=== PATIENT | female | born 1960 | race Caucasian/White ===

== ENCOUNTER 2023-09-16 17:43 | Inpatient (IN) | payer OTHER ==
[~2023-09-16] VITALS: Ht 162.6 cm; Wt 72.8 kg
[2023-09-16 17:45] VITALS: BP 172/92; PULSE 148; RESP 33; O2SAT 95
[2023-09-16] MEDS ORDERED: IPRATROPIUM 0.02% 0.5 MG/2.5 ML NEBU INH ONE (17:50)
[2023-09-16] MEDS ORDERED: NACL 0.9% 1,000 ML IV ONE ×2 (17:50→18:40)
[2023-09-16] MEDS ORDERED: ALBUTEROL 0.083% 2.5 MG/3 ML NEBU INH ONE (17:50)
[2023-09-16] MEDS ORDERED: methylPREDNISolone SS 125 MG/2 ML VIAL IVP ONE (17:50)
[2023-09-16] MEDS ORDERED: MAG SULF 2000 MG/WATER PREMIX 50 ML IV ONE (17:50)
[2023-09-16 17:58] VITALS: PULSE 148; RESP 33; O2SAT 95
[2023-09-16 17:59] VITALS: BP 164/143; PULSE 154; RESP 24; TEMP 96.3; O2SAT 98
[2023-09-16 18:28] LABS: BASOPHILS % (AUTO) 0.2 % (0.0-2.0); EOSINOPHILS # (AUTO) 0.1 K/uL (0-0.4); EOSINOPHILS % (AUTO) 0.8 % (0.0-4.0); HEMATOCRIT 36.6 % (36-48); HEMOGLOBIN 11.9 g/dL (12.0-16.0); LYMPHOCYTES # (AUTO) 1.4 K/uL (2.5-16.5); LYMPHOCYTES % (AUTO) 9.6 % (20.5-51.1); MEAN CORPUSCULAR HEMOGLOBIN 32 pg (27-31); MEAN CORPUSCULAR HGB CONC 33 g/dL (33-37); MONOCYTES # (AUTO) 1.1 K/uL (0.8-1.0); MONOCYTES % (AUTO) 7.6 % (1.7-9.3); NEUTROPHILS # (AUTO) 11.8 K/uL (1.8-7.7); NEUTROPHILS % (AUTO) 81.8 % (42.2-75.2); PLATELET COUNT (AUTO) 180 K/uL (140-450); RED CELL DISTRIBUTION WIDTH 13.5 % (11.6-13.7); WHITE BLOOD COUNT (AUTO) 14.4 K/uL (4.8-10.8)
[2023-09-16] MEDS ORDERED: PIPERACILLIN/TAZOBACTAM 3.375 GM in DEXTROSE 5% 50 ML IV ONE (18:40)
[2023-09-16 18:49] LABS: ALBUMIN 3.1 g/dL (3.4-5.0); ANION GAP 11.2 (8-16); CALCIUM 7.9 mg/dL (8.5-10.1); CARBON DIOXIDE 31.6 mmol/L (21-32); CREATININE 0.8 mg/dL (0.6-1.3); POTASSIUM 3.8 mmol/L (3.5-5.1); TOTAL BILIRUBIN 0.6 mg/dL (0.0-1.0); TOTAL PROTEIN, SERUM 6.3 g/dL (6.4-8.2)
[2023-09-16 18:57] VITALS: BP 152/76; PULSE 141; O2SAT 99
[2023-09-16 19:18] LABS: LACTIC ACID 2.8 mmol/L (0.4-2.0)
[2023-09-16] MEDS ORDERED: PIPERACILLIN/TAZOBACTAM 3.375 GM VIAL IV ONE (19:32)
[2023-09-16] MEDS ORDERED: MORPHINE SULFATE 4 MG/ML SYR IVP ONE (19:45)
[2023-09-16] MEDS ORDERED: ONDANSETRON 4 MG/2 ML VIAL IVP ONE (19:45)
[2023-09-16 21:10] VITALS: PULSE 119; O2SAT 94
[2023-09-16 22:02] LABS: BLOOD GAS BASE EXCESS -1.9 mmol/L (-2.0-2.0); BLOOD GAS HCO3 24.7 mmol/L (22-26); BLOOD GAS PCO2 49.2 mmHg (35-45); BLOOD GAS PH 7.318 (7.35-7.45); BLOOD GAS PO2 61.8 mmHg (75-100)
[2023-09-16] MEDS ORDERED: POTASSIUM CHLORIDE 10 MEQ TABER PO PRN (22:55)
[2023-09-16] MEDS ORDERED: guaiFENesin DM 200/20 MG-10 ML 10 ML UDC PO PRN (22:55)
[2023-09-16] MEDS ORDERED: ONDANSETRON 4 MG/2 ML VIAL IM/IVP PRN (22:55)
[2023-09-16] MEDS ORDERED: ZOLPIDEM 5 MG TAB PO PRN (22:55)
[2023-09-16] MEDS ORDERED: DOCUSATE SODIUM 100 MG GELCAP PO PRN (22:55)
[2023-09-16] MEDS ORDERED: HYDROcodone/APAP 7.5/325 MG 1 TAB PO PRN (22:55)
[2023-09-16] MEDS ORDERED: ACETAMINOPHEN 325 MG TAB PO PRN (22:55)
[2023-09-16 23:47] LABS: FLU A ANTIGEN negative (NEGATIVE); FLU B ANTIGEN NEGATIVE (NEGATIVE)
[2023-09-16 23:52] LABS: APPEARANCE,URINE CLEAR (CLEAR); BILIRUBIN,URINE NEGATIVE (NEGATIVE); BLOOD, URINE NEGATIVE (NEGATIVE); COLOR,URINE YELLOW (YELLOW); LEUKOCYTE ESTERASE ,URINE NEGATIVE (NEGATIVE); NITRITE, URINE NEGATIVE (NEGATIVE); PH,URINE 5.5 (5.0-9.0); PROTEIN,URINE TRACE (NEGATIVE); UGLUCOSE NEGATIVE (NEGATIVE); UROBILINOGEN,URINE 0.2 EU/dL (0.2 - 1)
[2023-09-16 23:59] VITALS: PULSE 91; O2SAT 97
[2023-09-17] VITALS (27 sets, daily range): BP systolic 104–147; BP diastolic 57–85; PULSE 70–111; RESP 13–24; TEMP 96–97.3; O2SAT 84–99
[2023-09-17] MEDS ORDERED: PIPERACILLIN/TAZOBACTAM 3.375 GM VIAL IV ONE (04:00)
[2023-09-17] MEDS: PIPERACILLIN/TAZOBACTAM 3.375 GM in DEXTROSE 5% 50 ML IV SCH ×3 (05:07→20:44)
[2023-09-17 05:32] LABS: HEMATOCRIT 36.2 % (36-48); HEMOGLOBIN 11.7 g/dL (12.0-16.0); LYMPHOCYTES # (AUTO) 0.2 K/uL (2.5-16.5); LYMPHOCYTES % (AUTO) 1.2 % (20.5-51.1); MEAN CORPUSCULAR HEMOGLOBIN 32 pg (27-31); MEAN CORPUSCULAR HGB CONC 33 g/dL (33-37); MEAN CORPUSCULAR VOLUME 99.1 fL (80-94); MONOCYTES # (AUTO) 0.1 K/uL (0.8-1.0); MONOCYTES % (AUTO) 0.4 % (1.7-9.3); NEUTROPHILS # (AUTO) 13.8 K/uL (1.8-7.7); NEUTROPHILS % (AUTO) 98.4 % (42.2-75.2); PLATELET COUNT (AUTO) 169 K/uL (140-450); RED BLOOD CELL COUNT(AUTO) 3.65 MIL/uL (4.20-5.40); RED CELL DISTRIBUTION WIDTH 13.4 % (11.6-13.7)
[2023-09-17 06:03] LABS: ANION GAP 8.5 (8-16); CALCIUM 8.1 mg/dL (8.5-10.1); CARBON DIOXIDE 33.8 mmol/L (21-32); CREATININE 0.6 mg/dL (0.6-1.3); POTASSIUM 4.3 mmol/L (3.5-5.1); TOTAL BILIRUBIN 0.3 mg/dL (0.0-1.0); TOTAL PROTEIN, SERUM 6.7 g/dL (6.4-8.2)
[2023-09-17] MEDS ORDERED: MAG SULF 2000 MG/WATER PREMIX 50 ML IV PRN (06:35)
[2023-09-17] MEDS ORDERED: POTASSIUM CHLORIDE 10 MEQ TABER PO PRN (06:35)
[2023-09-17] MEDS ORDERED: DOCUSATE SODIUM 100 MG GELCAP PO PRN (06:35)
[2023-09-17] MEDS ORDERED: ACETAMINOPHEN 325 MG TAB PO PRN (06:35)
[2023-09-17] MEDS ORDERED: ONDANSETRON 4 MG/2 ML VIAL IVP PRN (06:35)
[2023-09-17] MEDS ORDERED: ALBUTEROL SULFATE/IPRATROPIU 3 ML SOL IH SCH (07:00)
[2023-09-17] MEDS ORDERED: PANTOPRAZOLE 40 MG INJ VIAL ONE (08:08)
[2023-09-17] MEDS: PANTOPRAZOLE 40 MG INJ VIAL IVP SCH (08:14)
[2023-09-17] MEDS: NACL 0.9% 1,000 ML IV SCH ×2 (08:19→20:53)
[2023-09-17] MEDS ORDERED: PANTOPRAZOLE 40 MG TABEC PO SCH (09:00)
[2023-09-17] MEDS: methylPREDNISolone SS 40 MG/ML VIAL IVP SCH ×3 (11:11→23:26)
[2023-09-17] MEDS: MORPHINE SULFATE 2 MG/ML SYR IVP PRN (11:26)
[2023-09-17] MEDS ORDERED: SPIMDI INH (12:00)
[2023-09-17] MEDS ORDERED: LEVO0.1331 PO (12:00)
[2023-09-17] MEDS ORDERED: ATRN INH (12:00)
[2023-09-17] MEDS ORDERED: FLUT1BLS12 IH (12:00)
[2023-09-17] MEDS ORDERED: PRON INH (12:00)
[2023-09-17] MEDS: ALBUTEROL SULFATE/IPRATROPIU 3 ML SOL IH SCH ×3 (13:34→19:06)
[2023-09-17] MEDS: LORazepam 2 MG/ML VIAL IVP PRN (14:22)
[2023-09-17] MEDS: ZOLPIDEM 5 MG TAB PO PRN (23:25)
[2023-09-17] MEDS: ALBUTEROL SULFATE/IPRATROPIU 3 ML SOL IH PRN (23:42)
[2023-09-18] VITALS (18 sets, daily range): BP systolic 136–161; BP diastolic 66–93; PULSE 73–116; RESP 17–26; TEMP 96.8–97.9; O2SAT 90–99
[2023-09-18] MEDS: MORPHINE SULFATE 2 MG/ML SYR IVP PRN ×3 (00:13→17:33)
[2023-09-18] MEDS: PIPERACILLIN/TAZOBACTAM 3.375 GM in DEXTROSE 5% 50 ML IV SCH ×3 (04:27→20:45)
[2023-09-18] MEDS: ALBUTEROL SULFATE/IPRATROPIU 3 ML SOL IH PRN ×2 (04:46→09:04)
[2023-09-18] MEDS: methylPREDNISolone SS 40 MG/ML VIAL IVP SCH ×4 (05:19→23:43)
[2023-09-18 05:21] LABS: BASOPHILS % (AUTO) 0.2 % (0.0-2.0); HEMOGLOBIN 11.1 g/dL (12.0-16.0); LYMPHOCYTES # (AUTO) 0.3 K/uL (2.5-16.5); LYMPHOCYTES % (AUTO) 2.3 % (20.5-51.1); MEAN CORPUSCULAR HEMOGLOBIN 32 pg (27-31); MEAN CORPUSCULAR HGB CONC 33 g/dL (33-37); MEAN CORPUSCULAR VOLUME 98.3 fL (80-94); MONOCYTES # (AUTO) 0.2 K/uL (0.8-1.0); MONOCYTES % (AUTO) 1.9 % (1.7-9.3); NEUTROPHILS # (AUTO) 11.7 K/uL (1.8-7.7); NEUTROPHILS % (AUTO) 95.6 % (42.2-75.2); PLATELET COUNT (AUTO) 180 K/uL (140-450); RED BLOOD CELL COUNT(AUTO) 3.46 MIL/uL (4.20-5.40); RED CELL DISTRIBUTION WIDTH 13.4 % (11.6-13.7); WHITE BLOOD COUNT (AUTO) 12.2 K/uL (4.8-10.8)
[2023-09-18 05:41] LABS: ALBUMIN 2.8 g/dL (3.4-5.0); ANION GAP 10.2 (8-16); CARBON DIOXIDE 33.1 mmol/L (21-32); CREATININE 0.5 mg/dL (0.6-1.3); POTASSIUM 4.3 mmol/L (3.5-5.1); TOTAL BILIRUBIN 0.2 mg/dL (0.0-1.0); TOTAL PROTEIN, SERUM 6.2 g/dL (6.4-8.2)
[2023-09-18] MEDS: NACL 0.9% 1,000 ML IV SCH ×2 (06:12→23:50)
[2023-09-18] MEDS: ALBUTEROL SULFATE/IPRATROPIU 3 ML SOL IH SCH ×4 (07:09→19:48)
[2023-09-18] MEDS: PANTOPRAZOLE 40 MG INJ VIAL IVP SCH (08:41)
[2023-09-18] MEDS ORDERED: COMMUNICATION ORDER MC PRN (08:55)
[2023-09-18] MEDS: LEVOTHYROXINE 0.025 MG, LEVOTHYROXINE 0.112 MG PO SCH ×2 (09:19)
[2023-09-18] MEDS ORDERED: guaiFENesin DM 200/20 MG-10 ML 10 ML UDC PO PRN (10:10)
[2023-09-18] MEDS ORDERED: METOPROLOL 25 MG TAB PO SCH (17:54)
[2023-09-18] MEDS ORDERED: MAGNESIUM OXIDE 400 MG TAB PO ONE (18:20)
[2023-09-18] MEDS: LORazepam 2 MG/ML VIAL IVP PRN (19:27)
[2023-09-19] VITALS (12 sets, daily range): BP systolic 155–178; BP diastolic 70–88; PULSE 53–101; RESP 17–24; TEMP 97.1–98; O2SAT 95–99
[2023-09-19] MEDS: ZOLPIDEM 5 MG TAB PO PRN ×2 (01:10→22:02)
[2023-09-19] MEDS: ALBUTEROL SULFATE/IPRATROPIU 3 ML SOL IH PRN (01:54)
[2023-09-19] MEDS: MORPHINE SULFATE 2 MG/ML SYR IVP PRN ×4 (03:27→21:45)
[2023-09-19] MEDS: PIPERACILLIN/TAZOBACTAM 3.375 GM in DEXTROSE 5% 50 ML IV SCH ×3 (05:20→21:12)
[2023-09-19] MEDS ORDERED: LEVOTHYROXINE 0.112 MG TAB ONE (06:08)
[2023-09-19] MEDS ORDERED: LEVOTHYROXINE 0.025 MG TAB ONE (06:08)
[2023-09-19] MEDS: methylPREDNISolone SS 40 MG/ML VIAL IVP SCH ×3 (06:11→18:13)
[2023-09-19] MEDS: LEVOTHYROXINE 0.025 MG, LEVOTHYROXINE 0.112 MG PO SCH ×2 (06:11)
[2023-09-19 06:21] LABS: BASOPHILS % (AUTO) 0.1 % (0.0-2.0); HEMATOCRIT 34.6 % (36-48); HEMOGLOBIN 11.5 g/dL (12.0-16.0); LYMPHOCYTES # (AUTO) 0.2 K/uL (2.5-16.5); LYMPHOCYTES % (AUTO) 2.9 % (20.5-51.1); MEAN CORPUSCULAR HEMOGLOBIN 33 pg (27-31); MEAN CORPUSCULAR HGB CONC 33 g/dL (33-37); MEAN CORPUSCULAR VOLUME 97.9 fL (80-94); MONOCYTES # (AUTO) 0.2 K/uL (0.8-1.0); MONOCYTES % (AUTO) 2.7 % (1.7-9.3); NEUTROPHILS # (AUTO) 7.6 K/uL (1.8-7.7); NEUTROPHILS % (AUTO) 94.3 % (42.2-75.2); PLATELET COUNT (AUTO) 185 K/uL (140-450); RED BLOOD CELL COUNT(AUTO) 3.53 MIL/uL (4.20-5.40); RED CELL DISTRIBUTION WIDTH 13.3 % (11.6-13.7); WHITE BLOOD COUNT (AUTO) 8.1 K/uL (4.8-10.8)
[2023-09-19] MEDS ORDERED: LEVOTHYROXINE 0.025 MG TAB PO SCH (06:30)
[2023-09-19 06:35] LABS: ALBUMIN 2.9 g/dL (3.4-5.0); ANION GAP 8.6 (8-16); CALCIUM 7.6 mg/dL (8.5-10.1); CARBON DIOXIDE 33.8 mmol/L (21-32); CREATININE 0.6 mg/dL (0.6-1.3); POTASSIUM 4.4 mmol/L (3.5-5.1); TOTAL BILIRUBIN 0.3 mg/dL (0.0-1.0); TOTAL PROTEIN, SERUM 6.1 g/dL (6.4-8.2)
[2023-09-19] MEDS: ALBUTEROL SULFATE/IPRATROPIU 3 ML SOL IH SCH ×4 (07:23→19:47)
[2023-09-19] MEDS: LORazepam 2 MG/ML VIAL IVP PRN (09:05)
[2023-09-19] MEDS: PANTOPRAZOLE 40 MG INJ VIAL IVP SCH (09:06)
[2023-09-19] MEDS: METOPROLOL 25 MG TAB PO SCH ×2 (09:06→21:13)
[2023-09-19] MEDS: NACL 0.9% 1,000 ML IV SCH (15:47)
[2023-09-20] VITALS (21 sets, daily range): BP systolic 144–176; BP diastolic 74–107; PULSE 17–101; RESP 14–22; TEMP 96–98.3; O2SAT 93–100
[2023-09-20] MEDS: methylPREDNISolone SS 40 MG/ML VIAL IVP SCH ×4 (00:16→19:23)
[2023-09-20] MEDS: NACL 0.9% 1,000 ML IV SCH ×2 (00:24→06:05)
[2023-09-20] MEDS: ALBUTEROL SULFATE/IPRATROPIU 3 ML SOL IH PRN ×2 (01:13→09:20)
[2023-09-20] MEDS ORDERED: hydrALAZINE 20 MG/ML VIAL IVP PRN ×2 (04:20→20:00)
[2023-09-20] MEDS: PIPERACILLIN/TAZOBACTAM 3.375 GM in DEXTROSE 5% 50 ML IV SCH ×3 (04:43→20:54)
[2023-09-20] MEDS: MORPHINE SULFATE 2 MG/ML SYR IVP PRN ×2 (05:46→14:17)
[2023-09-20] MEDS ORDERED: LEVOTHYROXINE 0.025 MG TAB ONE (06:18)
[2023-09-20] MEDS ORDERED: LEVOTHYROXINE 0.112 MG TAB ONE (06:18)
[2023-09-20 06:22] LABS: BASOPHILS % (AUTO) 0.1 % (0.0-2.0); HEMATOCRIT 35.1 % (36-48); HEMOGLOBIN 11.7 g/dL (12.0-16.0); LYMPHOCYTES # (AUTO) 0.4 K/uL (2.5-16.5); MEAN CORPUSCULAR HEMOGLOBIN 33 pg (27-31); MEAN CORPUSCULAR HGB CONC 33 g/dL (33-37); MEAN CORPUSCULAR VOLUME 97.4 fL (80-94); MONOCYTES # (AUTO) 0.2 K/uL (0.8-1.0); MONOCYTES % (AUTO) 3.3 % (1.7-9.3); NEUTROPHILS # (AUTO) 6.5 K/uL (1.8-7.7); NEUTROPHILS % (AUTO) 91.6 % (42.2-75.2); PLATELET COUNT (AUTO) 205 K/uL (140-450); RED BLOOD CELL COUNT(AUTO) 3.61 MIL/uL (4.20-5.40); RED CELL DISTRIBUTION WIDTH 13.1 % (11.6-13.7); WHITE BLOOD COUNT (AUTO) 7.1 K/uL (4.8-10.8)
[2023-09-20] MEDS: LEVOTHYROXINE 0.025 MG, LEVOTHYROXINE 0.112 MG PO SCH ×2 (06:25)
[2023-09-20 06:51] LABS: ALBUMIN 3.1 g/dL (3.4-5.0); ANION GAP 10.6 (8-16); CALCIUM 7.3 mg/dL (8.5-10.1); CARBON DIOXIDE 34.5 mmol/L (21-32); CREATININE 0.7 mg/dL (0.6-1.3); POTASSIUM 4.1 mmol/L (3.5-5.1); TOTAL BILIRUBIN 0.4 mg/dL (0.0-1.0); TOTAL PROTEIN, SERUM 6.2 g/dL (6.4-8.2)
[2023-09-20] MEDS: ALBUTEROL SULFATE/IPRATROPIU 3 ML SOL IH SCH ×4 (07:00→18:50)
[2023-09-20] MEDS: PANTOPRAZOLE 40 MG INJ VIAL IVP SCH (09:00)
[2023-09-20] MEDS ORDERED: DEXMEDETOMIDINE HCL 400 MCG in NACL 0.9% 96 ML IV PRN (09:45)
[2023-09-20] MEDS: METOPROLOL 25 MG TAB PO SCH ×2 (09:45→20:58)
[2023-09-20] MEDS ORDERED: oxyCODONE 5 MG TAB PO SCH (11:49)
[2023-09-20] MEDS: LORazepam 2 MG/ML VIAL IVP PRN (18:00)
[2023-09-21] VITALS (14 sets, daily range): BP systolic 120–197; BP diastolic 66–155; PULSE 69–88; RESP 14–20; TEMP 96.9–97.7; O2SAT 92–100
[2023-09-21] MEDS: methylPREDNISolone SS 40 MG/ML VIAL IVP SCH ×3 (00:37→15:12)
[2023-09-21] MEDS: MORPHINE SULFATE 2 MG/ML SYR IVP PRN ×2 (00:39→07:38)
[2023-09-21] MEDS: ALBUTEROL SULFATE/IPRATROPIU 3 ML SOL IH PRN (03:53)
[2023-09-21] MEDS ORDERED: hydrALAZINE 20 MG/ML VIAL IVP PRN (04:20)
[2023-09-21] MEDS ORDERED: hydrALAZINE 20 MG/ML VIAL ONE (04:21)
[2023-09-21] MEDS: PIPERACILLIN/TAZOBACTAM 3.375 GM in DEXTROSE 5% 50 ML IV SCH ×2 (04:36→15:12)
[2023-09-21] MEDS ORDERED: LEVOTHYROXINE 0.025 MG TAB ONE (06:22)
[2023-09-21] MEDS: LEVOTHYROXINE 0.025 MG, LEVOTHYROXINE 0.112 MG PO SCH ×2 (06:30)
[2023-09-21 06:33] LABS: ANION GAP 6.7 (8-16); CALCIUM 7.1 mg/dL (8.5-10.1); CARBON DIOXIDE 38.3 mmol/L (21-32); CREATININE 0.6 mg/dL (0.6-1.3); TOTAL BILIRUBIN 0.5 mg/dL (0.0-1.0); TOTAL PROTEIN, SERUM 5.8 g/dL (6.4-8.2)
[2023-09-21] MEDS: ALBUTEROL SULFATE/IPRATROPIU 3 ML SOL IH SCH ×3 (06:51→15:00)
[2023-09-21 07:01] LABS: HEMATOCRIT 35.7 % (36-48); HEMOGLOBIN 11.8 g/dL (12.0-16.0); MEAN CORPUSCULAR HEMOGLOBIN 33 pg (27-31); MEAN CORPUSCULAR HGB CONC 33 g/dL (33-37); MEAN CORPUSCULAR VOLUME 98.4 fL (80-94); PLATELET COUNT (AUTO) 188 K/uL (140-450); RED BLOOD CELL COUNT(AUTO) 3.63 MIL/uL (4.20-5.40); RED CELL DISTRIBUTION WIDTH 13.1 % (11.6-13.7); WHITE BLOOD COUNT (AUTO) 6.7 K/uL (4.8-10.8)
[2023-09-21 07:31] LABS: BASOPHILS % (MANUAL) 0 % (0-2); BLASTS, MANUAL % 0 % (0-0); EOSINOPHILS % (MANUAL) 0 % (0-4); LYMPHOCYTES % (MANUAL) 6 % (20-46); METAMYELOCYTES % 0 % (0-0); MONOCYTES % (MANUAL) 4 % (5-12); MYELOCYTES % 0 % (0-0); OTHER CELLS,MANUAL % 0 (0-0); PLATELET ESTIMATE ADEQUATE; PROMYELOCYTES % 0 % (0-0)
[2023-09-21] MEDS ORDERED: DEXTROSE 5% IV SCH (07:40)
[2023-09-21] MEDS ORDERED: PROCAINAMIDE IV SCH (07:40)
[2023-09-21] MEDS: LORazepam 2 MG/ML VIAL IVP PRN (09:19)
[2023-09-21] MEDS: PHENAZOPYRIDINE 100 MG TAB PO SCH ×2 (09:35→13:00)
[2023-09-21] MEDS: PANTOPRAZOLE 40 MG INJ VIAL IVP SCH (09:57)
[2023-09-21] MEDS: METOPROLOL 25 MG TAB PO SCH (09:58)
[2023-09-21] MEDS ORDERED: MORPHINE SULFATE 4 MG/ML SYR IVP SCH (10:15)
== END 2023-09-21 16:51 | disposition short-term general hospital (02) | DRG 193 ==
LOC: MED 17:43 → MMU 22:54 → MIC 09-17 00:55 → MTU 09-18 16:20 → MIC 09-20 11:17
PROVIDERS: ADMIT Student in an Organized Health Care Education/Training Program; ATTEND Student in an Organized Health Care Education/Training Program
PROC: 5A09357 Assistance with Respiratory Ventilation, Less than 24 Consecutive Hours, Continuous Positive Airway Pressure (ICD-10-PCS; principal; 2023-09-16)
PROC: 5A09357 Assistance with Respiratory Ventilation, Less than 24 Consecutive Hours, Continuous Positive Airway Pressure (ICD-10-PCS; 2023-09-19)
PROC: 5A09457 Assistance with Respiratory Ventilation, 24-96 Consecutive Hours, Continuous Positive Airway Pressure (ICD-10-PCS; 2023-09-20)
DX: J18.9 Pneumonia, unspecified organism (principal); G93.41 Metabolic encephalopathy; J96.02 Acute respiratory failure with hypercapnia; J44.1 Chronic obstructive pulmonary disease with (acute) exacerbation; J44.0 Chronic obstructive pulmonary disease with (acute) lower respiratory infection; E78.5 Hyperlipidemia, unspecified; E20.9 Hypoparathyroidism, unspecified; I10 Essential (primary) hypertension; M54.9 Dorsalgia, unspecified; Z20.822 Contact with and (suspected) exposure to COVID-19; Z90.49 Acquired absence of other specified parts of digestive tract; Z85.850 Personal history of malignant neoplasm of thyroid
CPT/HCPCS: 36415; 36600; 71045; 80053; 81003; 82803; 83605; 83880; 84484; 85025; 87040; 87081; 94640; 94644; 94660; 96365; 96367; 96375; 99291; C9113; J0360; J1644; J2060; J2270; J2405; J2543; J2920; J2930; J3475; J7060; J7613; J7644